=== PATIENT | male | born 1990 | race American Indian/Alaskan Native ===

== ENCOUNTER 2017-01-10 13:29 | Emergency (ER) | payer MEDICAID ==
[2017-01-10 13:36] VITALS: BP 111/72; PULSE 57; RESP 20; TEMP 98.4; O2SAT 96
[2017-01-10] MEDS ORDERED: DiphenhydrAMINE 12.5 mg/5 ml LIQ UD (5 ml) PO STA (13:42)
[2017-01-10] MEDS ORDERED: Alum-Mag Hydrox-Simethicone Susp (30 mL) PO STA (13:43)
--- NOTE | 2017-01-10 13:50 | C.PDOC ---
History Of Present Illness 26 y/o M p/w throat swelling x 3 days. Patient states that for 3 days, he has been having throat pain and swelling whenever he eats or drinks anything. He has no symptoms currently as he has not eating or drank anything. He states it does not matter what it is that he ingests. He denies stridor or drooling. He denies any abrasive ingestions or drug use out of the ordinary. States only smokes marijuana as illicit drug use and states it has been normal. Time Seen by Provider: 01/10/17 13:35 Chief Complaint (Nursing): ENT Problem Past Medical History Vital Signs: Last Vital Signs Temp 98.4 F 01/10/17 13:34 Pulse 57 L 01/10/17 13:34 Resp 20 01/10/17 13:34 BP 111/72 01/10/17 13:34 Pulse Ox 96 01/10/17 13:50 Family History: States: No Known Family Hx - Social History Hx Alcohol Use: No Hx Substance Use: No - Immunization History Hx Tetanus Toxoid Vaccination: No Hx Influenza Vaccination: No Hx Pneumococcal Vaccination: No Review Of Systems Except As Marked, All Systems Reviewed And Found Negative. Constitutional: Negative for: Fever Cardiovascular: Negative for: Chest Pain Respiratory: Negative for: Shortness of Breath Physical Exam - Physical Exam Appears: No Acute Distress Skin: No Rash Head: Atraumatic, Normacephalic Tongue: Normal Appearing Lips: Normal Appearing Throat: No Erythema, No Exudate, No Drooling, No Mass Neck: Supple Respiratory: No Accessory Muscle Use ED Course And Treatment O2 Sat by Pulse Oximetry: 96 Medical Decision Making Medical Decision Making: Will administere benadryl and maalox liquids and reassess. Patient drank these liquids and states that it did occur. On reassessment, patient's voice unchanged, no stridor, no drooling. Oropharnyx appears normal. Will discharge home, advised ibuprofen for pain, Benadryl liquid, take soft, warm foods/liquids, f/u PMD, return to ER for drooling, stridor, voice change, or any other problem. Disposition - Disposition Disposition: HOME/ ROUTINE Disposition Time: 14:24 Condition: STABLE Instructions: Dysphagia (ED) Forms: [email or web address] ([place]) - Clinical Impression Clinical Impression: Throat pain
[2017-01-10] MEDS ORDERED: Alum-Mag Hydrox-Simethicone Susp (30 mL) ONE (13:51)
[2017-01-10] MEDS ORDERED: DiphenhydrAMINE 12.5 mg/5 ml LIQ UD (5 ml) ONE (13:51)
== END 2017-01-10 14:31 | disposition home or self-care (01) ==
LOC: C.ER 13:29
DX: R07.0 Pain in throat (principal)